=== PATIENT | female | born 1985 | race African-American/Black ===

== ENCOUNTER 2016-11-11 21:33 | Emergency (ER) | payer SELFPAY ==
--- NOTE | 2016-11-11 21:46 | ER Document Report ---
ED Medical Screen (RME) - General Stated Complaint: URINARY SYMPTOMS Notes: 30 yo c/o dysuria since this morning. + urgency, frequency. no fever. no n/v TRAVEL OUTSIDE OF THE [place] IN LAST 30 DAYS: No Past Medical History - Immunizations Hx Diphtheria, Pertussis, Tetanus Vaccination: Yes Physical Exam - Vital signs Vitals: Temp Pulse Resp BP Pulse Ox 97.9 F 66 18 116/60 98 11/11/16 21:40 11/11/16 21:40 11/11/16 21:40 11/11/16 21:40 11/11/16 21:40 Course - Vital Signs Vital signs: Temp Pulse Resp BP Pulse Ox 97.9 F 66 18 116/60 98 11/11/16 21:40 11/11/16 21:40 11/11/16 21:40 11/11/16 21:40 11/11/16 21:40
[2016-11-11 22:11] LABS: APPEARANCE,URINE CLOUDY; BILIRUBIN,URINE NEGATIVE (NEGATIVE); GLUCOSE, URINE NEGATIVE (NEGATIVE); KETONES,URINE NEGATIVE (NEGATIVE); LEUKOCYTE ESTERASE,URINE LARGE (NEGATIVE); NITRITE,URINE NEGATIVE (NEGATIVE); PROTEIN,URINE NEGATIVE (NEGATIVE); URINE SPECIFIC GRAVITY 1.023
[2016-11-12 00:14] VITALS: BP 120/71
[2016-11-12] MEDS ORDERED: NITROFURANTOIN MONOHYD/M-CRYST 100 MG CAPSULE PO ONE (00:23)
--- NOTE | 2016-11-12 00:23 | ER Document Report ---
ED GI/ - General Chief Complaint: Urinary Problem Stated Complaint: URINARY SYMPTOMS Time seen by provider: 00:18 Mode of Arrival: Ambulatory Information source: Patient Notes: 30-year-old female presents to ED for pressure on urination since this morning. Frequent urination. Last menstrual period 10/23/2016 TRAVEL OUTSIDE OF THE [place] IN LAST 30 DAYS: No - HPI Patient complains to provider of: Other - Pain with urination frequency Onset: This morning Timing/Duration: Intermittent Quality of pain: Pressure Severity at maximum: Mild Severity in ED: Mild Pain Level: 3 - Only when she uses the bathroom Location: Other - Pain with urination Vaginal bleeding (Compared to normal period): None Associated symptoms: Urinary frequency, Other - December urination Exacerbated by: Other - Urination Relieved by: Denies Similar symptoms previously: Yes Recently seen / treated by doctor: No - Related Data Allergies/Adverse Reactions: No Known Allergies Allergy (Unverified 11/11/16 21:46) Past Medical History - General Information source: Patient - Social History Smoking Status: Never Smoker Cigarette use (# per day): No Chew tobacco use (# tins/day): No Smoking Education Provided: No Frequency of alcohol use: None Drug Abuse: None Occupation: [employer] Lives with: Family Family History: CAD, Hyperlipidemia, Hypertension - Medical History Medical History: Negative - Past Medical History Cardiac Medical History: Reports: None Pulmonary Medical History: Reports: None EENT Medical History: Reports: None Neurological Medical History: Reports: None Endocrine Medical History: Reports: None Renal/ Medical History: Reports: None - Immunizations Hx Diphtheria, Pertussis, Tetanus Vaccination: Yes Review of Systems - Review of Systems Constitutional: No symptoms reported EENT: No symptoms reported Cardiovascular: No symptoms reported Respiratory: No symptoms reported Gastrointestinal: No symptoms reported Genitourinary: No symptoms reported, Frequency, Other - Pain with urination Female Genitourinary: No symptoms reported Musculoskeletal: No symptoms reported Skin: No symptoms reported Hematologic/Lymphatic: No symptoms reported Neurological/Psychological: No symptoms reported Physical Exam - Vital signs Vitals: Temp Pulse Resp BP Pulse Ox 97.9 F 66 18 116/60 98 11/11/16 21:40 11/11/16 21:40 11/11/16 21:40 11/11/16 21:40 11/11/16 21:40 Interpretation: Normal - General General appearance: Appears well, Alert - HEENT Head: Normocephalic, Atraumatic Eyes: Normal Pupils: PERRL - Respiratory Respiratory status: No respiratory distress Chest status: Nontender Breath sounds: Normal Chest palpation: Normal - Cardiovascular Rhythm: Regular Heart sounds: Normal auscultation Murmur: No - Abdominal Inspection: Normal Distension: No distension Bowel sounds: Normal Tenderness: Nontender Organomegaly: No organomegaly - Back Back: Normal, Nontender - Extremities General upper extremity: Normal inspection, Nontender, Normal color, Normal ROM , Normal temperature General lower extremity: Normal inspection, Nontender, Normal color, Normal ROM , Normal temperature, Normal weight bearing. No: Annia's sign - Neurological Neuro grossly intact: Yes Cognition: Normal Orientation: AAOx4 [place] Coma Scale Eye Opening: Spontaneous Pati Coma Scale Verbal: Oriented [place] Coma Scale Motor: Obeys Commands Pati Coma Scale Total: 15 Speech: Normal Motor strength normal: LUE, RUE, LLE, RLE Sensory: Normal - Psychological Associated symptoms: Normal affect, Normal mood - Skin Skin Temperature: Warm Skin Moisture: Dry Skin Color: Normal Course - Vital Signs Vital signs: Temp Pulse Resp BP Pulse Ox 97.9 F 71 16 120/71 98 11/12/16 00:13 11/12/16 00:13 11/12/16 00:13 11/12/16 00:13 11/12/16 00:13 - Laboratory Laboratory results interpreted by me: 11/11/16 21:50 Urine Urobilinogen 2.0 H Ur Leukocyte Esterase LARGE H Discharge - Discharge Clinical Impression: UTI (urinary tract infection) Qualifiers: Urinary tract infection type: site unspecified Hematuria presence: without hematuria Qualified Code(s): N39.0 - Urinary tract infection, site not specified Condition: Good Disposition: HOME, SELF-CARE Additional Instructions: URINARY TRACT INFECTION: Your evaluation indicates that you have a urinary tract infection. This is due to germs growing in the bladder. This is a common problem. This infection usually responds quickly to antibiotics. Your antibiotic should be taken exactly as prescribed. Drink plenty of fluids -- three to four quarts a day. Occasionally, a bladder anesthetic will be prescribed to help stop the feeling of urgency until the antibiotic has a chance to clear the infection. This may cause your urine to be dark orange. Certain urine infections require a culture. If the doctor obtained a culture, the results will be back in two days. You should call to see if a change in treatment is needed. A repeat urinalysis after you finish treatment is often recommended. The physician will let you know if further testing is required. Call the doctor if you develop fever, chills, flank pain, inability to urinate, or blood in the urine. NITROFURANTOIN (MACRODANTIN, MACROBID): You have received a prescription for nitrofurantoin (Macrodantin). This antibiotic is used for urinary tract infections. Women who are or nursing should notify the physician before taking this medicine. If you have ever had a problem caused by this medication in the past, be sure the physician is aware of it. Common side effects of this medicine include nausea, vomiting, or decreased appetite. Notify your physician if these side effects become severe. Immediately stop this medicine and call the physician if you develop cough , shortness of breath, chest pain, weakness, jaundice (yellow color of the skin and whites of the eyes), or a skin rash. FOLLOW-UP CARE: If you have been referred to a physician for follow-up care, call the physician s office for an appointment as you were instructed or within the next two days. If you experience worsening or a significant change in your symptoms, notify the physician immediately or return to the Emergency Department at any time for re-evaluation. Prescriptions: Nitrofurantoin/Nitrofuran Mac [Macrobid 100 mg Capsule] 1 tab PO BID #20 capsule Forms: Return to Work
== END 2016-11-12 01:06 | disposition home or self-care (01) ==
LOC: ER 21:33
DX: N39.0 Urinary tract infection, site not specified (principal); R39.198 Other difficulties with micturition; R35.0 Frequency of micturition
CPT/HCPCS: 99283; 87086; 81001; J8499

== ENCOUNTER 2017-02-01 09:48 | Emergency (ER) | payer SELFPAY ==
[2017-02-01] MEDS ORDERED: FAMOTIDINE 20 MG TABLET PO ONE (10:26)
[2017-02-01] MEDS ORDERED: ONDANSETRON 4 MG TAB.RAPDIS PO ONE (10:26)
[2017-02-01] MEDS ORDERED: SUCRALFATE 1 GM TABLET PO ONE (10:26)
--- NOTE | 2017-02-01 10:26 | ER Document Report ---
ED Medical Screen (RME) - General Mode of Arrival: Ambulatory Information source: Patient TRAVEL OUTSIDE OF THE U.[place] IN LAST 30 DAYS: No <DB GASCA - Last Filed: 02/01/17 11:25> <OSEI CARROLL - Last Filed: 02/01/17 11:43> <OSWALDO MARCIAL - Last Filed: 02/01/17 13:15> - General Chief Complaint: Epigastric Pain Stated Complaint: PAIN IN UPPER RIB/RIGHT SIDE Time Seen by Provider: 02/01/17 10:19 Notes: Patient presents today with complaints of abdominal pain beginning yesterday. Patient has describes the pain as a "sharp pain" and she states it "comes and goes". Patient states she noticed that her pain increased after taking Goody's powder. Patient states her pain is relieved with food. Patient denies any fevers, nausea, vomiting, or cough. (DB GASCA) 31-year-old female presents with epigastric pain started yesterday after taking a Goody's powder for her headache. She has noticed since then sharp pain it is usually improved when she eats but then will come back shortly afterwards. She is not having any vomiting or nausea. Denies fever or chest pain and states she has had a little bit of dizziness and felt last night like her heart was racing. Denies cough or cold symptoms. No other alleviating or exacerbating symptoms. Currently she does not have pain but it does seem to come and go. Also has had some mild Sylwia vision bilaterally though states she wears glasses but does not have them with her. There is no vision loss. No focal weakness numbness or tingling. (OSEI CARROLL) - Related Data Allergies/Adverse Reactions: No Known Allergies Allergy (Unverified 02/01/17 10:06) Past Medical History Renal/ Medical History: Denies: Hx Peritoneal Dialysis - Immunizations Hx Diphtheria, Pertussis, Tetanus Vaccination: Yes <DB GASCA - Last Filed: 02/01/17 11:25> Physical Exam - Vital signs Interpretation: Normal - General General appearance: Alert In distress: Mild - appera uncomfortable - Abdominal Tenderness: Tender - mild epigastric <OSWALDO MARCIAL - Last Filed: 02/01/17 13:15> - Vital signs Vitals: Temp Pulse Resp BP Pulse Ox 98 F 71 16 122/77 100 02/01/17 10:06 02/01/17 10:06 02/01/17 10:06 02/01/17 10:06 02/01/17 10:06 Course - Laboratory Result Diagrams: 02/01/17 10:55 02/01/17 10:55 <DB GASCA - Last Filed: 02/01/17 11:25> - Laboratory Result Diagrams: 02/01/17 10:55 02/01/17 10:55 <OSEI CARROLL - Last Filed: 02/01/17 11:43> - Laboratory Result Diagrams: 02/01/17 10:55 02/01/17 10:55 <OSWALDO MARCIAL - Last Filed: 02/01/17 13:15> - Re-evaluation Re-evalutation: 02/01/17 13:15 I personally performed the services described in the documentation, reviewed and edited the documentation which was dictated to the scribe in my presence, and it accurately records my words and actions. (OSWALDO MARCIAL) - Vital Signs Vital signs: Temp Pulse Resp BP Pulse Ox 98.7 F 66 16 112/67 99 02/01/17 12:54 02/01/17 12:54 02/01/17 12:54 02/01/17 12:54 02/01/17 12:54 - Laboratory Laboratory results interpreted by me: 02/01/17 02/01/17 10:31 10:55 Total Bilirubin 1.8 H Lipase 323.0 H Urine Blood SMALL H Doctor's Discharge <DB GASCA - Last Filed: 02/01/17 11:25> <OSEI CARROLL - Last Filed: 02/01/17 11:43> <OSWALDO MARCIAL - Last Filed: 02/01/17 13:15> - Discharge Clinical Impression: Epigastric abdominal pain Condition: Good Disposition: HOME, SELF-CARE Instructions: Abdominal Pain ([facility]) Additional Instructions: Use clear liquids today. Avoid NSAIDs such as gait pattern is or ibuprofen. As discussed, one your pancreas enzyme is borderline elevated so please return if you're worsening at all or for other concern. Use Prilosec over the counter daily 20 mg. Start this today. Prescriptions: Omeprazole Magnesium [Prilosec Otc] 20 mg PO DAILY #15 tablet.dr Quiroz Documentation - Scribe Written by Richie:: Richie Muñiz, 02/01/2017 1131 acting as scribe for :: Mark <DB GASCA - Last Filed: 02/01/17 11:25>
[2017-02-01 11:06] LABS: APPEARANCE,URINE CLEAR; BILIRUBIN,URINE NEGATIVE (NEGATIVE); GLUCOSE, URINE NEGATIVE (NEGATIVE); KETONES,URINE NEGATIVE (NEGATIVE); LEUKOCYTE ESTERASE,URINE NEGATIVE (NEGATIVE); NITRITE,URINE NEGATIVE (NEGATIVE); PROTEIN,URINE NEGATIVE (NEGATIVE); URINE SPECIFIC GRAVITY 1.001; UROBILINOGEN,URINE NEGATIVE mg/dL (<2.0)
[2017-02-01 11:36] LABS: ABSOLUTE BASOPHILS # (AUTO) 0.1 10^3/uL (0.0-0.2); ABSOLUTE EOSINOPHILS # (AUTO) 0.1 10^3/uL (0.0-0.6); ABSOLUTE LYMPHOCYTES (AUTO) 1.7 10^3/uL (0.5-4.7); ABSOLUTE NEUT (AUTO) 5.7 10^3/uL (1.7-8.2); BASOPHILS % (AUTO) 0.6 % (0-2); HEMATOCRIT 41.3 % (36.0-47.0); HEMOGLOBIN 13.9 g/dL (12.0-15.5); HGB HCT DIFFERENCE 0.4; LYMPHOCYTES % (AUTO) 19.6 % (13-45); MEAN CORPUSCULAR HEMOGLOBIN 32.3 pg (27.0-33.4); MEAN CORPUSCULAR HGB CONC 33.8 g/dL (32.0-36.0); MEAN CORPUSCULAR VOLUME 96 fl (80-97); MONOCYTES % (AUTO) 11.8 % (3-13); RED BLOOD COUNT 4.32 10^6/uL (3.72-5.28); RED CELL DISTRIBUTION WIDTH 12.7 % (11.5-14.0); WHITE BLOOD COUNT 8.5 10^3/uL (4.0-10.5)
[2017-02-01 11:51] LABS: ALANINE AMINOTRANSFERASE 25 U/L (9-52); ALBUMIN 4.6 g/dL (3.5-5.0); ALKALINE PHOSPHATASE 52 U/L (38-126); ANION GAP 11 (5-19); ASPARTATE AMINO TRANSFERASE 22 U/L (14-36); BILIRUBIN,DIRECT 0.3 mg/dL (0.0-0.4); BILIRUBIN,TOTAL 1.8 mg/dL (0.2-1.3); BLOOD UREA NITROGEN 9 mg/dL (7-20); CALCIUM 9.8 mg/dL (8.4-10.2); CARBON DIOXIDE 28 mmol/L (22-30); CHLORIDE 102 mmol/L (98-107); CREATININE RESULT 0.71 mg/dL (0.52-1.25); GLUCOSE 92 mg/dL (75-110); POTASSIUM 4.5 mmol/L (3.6-5.0); SODIUM 141.3 mmol/L (137-145); TOTAL PROTEIN 8.1 g/dL (6.3-8.2)
--- NOTE | 2017-02-01 11:52 | ER Document Report ---
ED General - General Chief Complaint: Epigastric Pain Stated Complaint: PAIN IN UPPER RIB/RIGHT SIDE Time Seen by Provider: 02/01/17 10:19 Mode of Arrival: Ambulatory Notes: 31-year-old female presents with epigastric pain started yesterday after taking a Goody's powder for her headache. She has noticed since then sharp pain it is usually improved when she eats but then will come back shortly afterwards. She is not having any vomiting or nausea. Denies fever or chest pain and states she has had a little bit of dizziness and felt last night like her heart was racing. Denies cough or cold symptoms. No other alleviating or exacerbating symptoms. Currently she does not have pain but it does seem to come and go. Also has had some mild Sylwia vision bilaterally though states she wears glasses but does not have them with her. There is no vision loss. No focal weakness numbness or tingling. (OSEI CARROLL) TRAVEL OUTSIDE OF THE [place] IN LAST 30 DAYS: No - Related Data Allergies/Adverse Reactions: No Known Allergies Allergy (Unverified 02/01/17 10:06) Past Medical History - General Information source: Patient - Social History Smoking Status: Never Smoker Chew tobacco use (# tins/day): No Frequency of alcohol use: None Drug Abuse: None Family History: CAD, Hyperlipidemia, Hypertension Patient has suicidal ideation: No Patient has homicidal ideation: No Renal/ Medical History: Denies: Hx Peritoneal Dialysis Surgical Hx: Negative - Immunizations Hx Diphtheria, Pertussis, Tetanus Vaccination: Yes Review of Systems - Review of Systems -: Yes All other systems reviewed and negative Physical Exam - Vital signs Vitals: Temp Pulse Resp BP Pulse Ox 98 F 71 16 122/77 100 02/01/17 10:06 02/01/17 10:06 02/01/17 10:06 02/01/17 10:06 02/01/17 10:06 - Notes Notes: GENERAL: VS as per nursing doc. Well-appearing, well-nourished and in no acute distress. HEAD: Atraumatic, normocephalic. EYES: Pupils equal round and reactive to light, extraocular movements intact, sclera anicteric, no conjunctival injection or discharge. Anterior chambers are clear ENT: Nares patent, oropharynx clear without exudates, moist mucous membranes. NECK: Normal range of motion, supple without lymphadenopathy. LUNGS: Breath sounds clear to auscultation bilaterally and equal. No wheezes rales or rhonchi. HEART: Regular rate and rhythm without murmurs. ABDOMEN: Soft, minimal epigastric tenderness, normoactive bowel sounds. No guarding, no rebound. No masses appreciated. No [place] sign. BACK: No CVA tenderness. EXTREMITIES: Normal range of motion, no calf tenderness, no edema. NEUROLOGICAL: Cranial nerves intact. Normal speech. Normal sensory and motor exams. No cerebellar abnormalities with normal gait. PSYCH: Normal mood, normal affect. SKIN: Warm, dry, normal turgor, no lesions noted. Course - Re-evaluation Re-evalutation: 02/01/17 12:43 Patient is reevaluated. Her symptoms are resolved. She has no tenderness. I discussed lab findings with her which included a slightly elevated lipase and bilirubin but no significant white blood cell count or LFT change. I discussed with her potential differential including early pancreatitis that at this point we will treat it more like gastritis and she will get follow-up returning immediately if worsening. She voices understanding of this. She will use Prilosec [id number]. - Vital Signs Vital signs: Temp Pulse Resp BP Pulse Ox 98 F 71 16 122/77 100 02/01/17 10:06 02/01/17 10:06 02/01/17 11:26 02/01/17 10:06 02/01/17 10:06 - Laboratory Result Diagrams: 02/01/17 10:55 02/01/17 10:55 Laboratory results interpreted by me: 02/01/17 02/01/17 10:31 10:55 Total Bilirubin 1.8 H Lipase 323.0 H Urine Blood SMALL H - EKG Interpretation by Ny EKG shows normal: Sinus rhythm - EKG shows rate 97 with normal sinus rhythm with flat ST segments but no obvious ischemia Discharge - Discharge Clinical Impression: Epigastric abdominal pain Condition: Good Disposition: HOME, SELF-CARE Instructions: Abdominal Pain ([facility]) Additional Instructions: Use clear liquids today. Avoid NSAIDs such as gait pattern is or ibuprofen. As discussed, one your pancreas enzyme is borderline elevated so please return if you're worsening at all or for other concern. Use Prilosec over the counter daily 20 mg. Start this today. Prescriptions: Omeprazole Magnesium [Prilosec Otc] 20 mg PO DAILY #15 tablet.
[2017-02-01 12:56] VITALS: BP 112/67
--- NOTE | 2017-02-01 20:34 | EKG REPORT ---
SEVERITY:- BORDERLINE ECG - SINUS RHYTHM PROBABLE LEFT ATRIAL ABNORMALITY : Confirmed by: Jazz Ellington 01-Feb-2017 20:33:12
== END 2017-02-01 12:56 | disposition home or self-care (01) ==
LOC: ER 09:48
DX: R10.13 Epigastric pain (principal); R07.81 Pleurodynia; R11.0 Nausea
CPT/HCPCS: 93005; 99284; 36415; 83690; 84703; 85025; 80053; 81001; 71020; 93010; S0119

== ENCOUNTER 2017-02-28 01:57 | Emergency (ER) | payer BC ==
[2017-02-28 02:12] VITALS: BP 118/67
[2017-02-28] MEDS ORDERED: HYDROCODONE/ACETAMINOPHEN 5-325 MG 6 TAB/DSPK PO PRN (03:09)
[2017-02-28] MEDS ORDERED: PENICILLIN V POTASSIUM 500 MG TABLET PO ONE (03:09)
--- NOTE | 2017-02-28 03:11 | ER Document Report ---
HPI - HPI Patient complains to provider of: Dental pain Onset: Yesterday Onset/Duration: Gradual Quality of pain: Sharp Pain Level: 5 Context: pt complains of dental pain to right upper jaw that started yesterday. Reports that pain radiates into her ears. Patient denies any fever or facial swelling. Associated Symptoms: Other - dental pain. denies: Fever Exacerbated by: Denies Relieved by: Denies Similar symptoms previously: Yes Recently seen / treated by doctor: No - ROS ROS below otherwise negative: Yes Systems Reviewed and Negative: Yes All other systems reviewed and negative - CONSTITUTIONAL Constitutional: DENIES: Fever - EENT EENT: REPORTS: Ear Pain Notes: dental pain - RESPIRATORY Respiratory: DENIES: Coughing - GASTROINTESTINAL Gastrointestinal: DENIES: Nausea, Patient vomiting - REPRODUCTIVE Reproductive: DENIES: : - DERM Skin Color: Normal Skin Problems: None - NURSING COMMENTS Comment: C/o toothache. Past Medical History - General Information source: Patient - Social History Smoking Status: Never Smoker Frequency of alcohol use: None Drug Abuse: None Occupation: [employer] Family History: CAD, Hyperlipidemia, Hypertension Patient has suicidal ideation: No Patient has homicidal ideation: No - Medical History Medical History: Negative Renal/ Medical History: Denies: Hx Peritoneal Dialysis Surgical Hx: Negative - Immunizations Hx Diphtheria, Pertussis, Tetanus Vaccination: Yes Vertical Provider Document - CONSTITUTIONAL Agree With Documented VS: Yes Exam Limitations: No Limitations General Appearance: WD/WN, No Apparent Distress - INFECTION CONTROL TRAVEL OUTSIDE OF THE [place] IN LAST 30 DAYS: No - HEENT HEENT: Atraumatic, Normocephalic. negative: Pharyngeal Exudate, Pharyngeal Tenderness, Pharyngeal Erythema, Tympanic Membrane Red, Tympanic Membrane Bulging Mouth Diagram: 1 - dental Decay, tenderness, no gingival abscess, no trismus - NECK Neck: Normal Inspection, Supple. negative: Lymphadenopathy-Left, Lymphadenopathy-Right - RESPIRATORY Respiratory: Breath Sounds Normal, No Respiratory Distress, Chest Non-Tender O2 Sat by Pulse Oximetry: 99 - CARDIOVASCULAR Cardiovascular: Regular Rate, Regular Rhythm, No Murmur - BACK Back: Normal Inspection - MUSCULOSKELETAL/EXTREMETIES Musculoskeletal/Extremeties: MAEW - NEURO Level of Consciousness: Awake, Alert, Appropriate Motor/Sensory: No Motor Deficit - DERM Integumentary: Warm, Dry, No Rash Course - Vital Signs Vital signs: Temp Pulse Resp BP Pulse Ox 98.7 F 60 18 118/67 99 02/28/17 02:09 02/28/17 02:09 02/28/17 02:09 02/28/17 02:09 02/28/17 02:09 Discharge - Discharge Clinical Impression: Toothache Condition: Stable Disposition: HOME, SELF-CARE Instructions: Penicillin V K ([facility]), Toothache ([facility]), Oral Narcotic Medication ( [facility]) Additional Instructions: Return immediately for any new or worsening symptoms Followup with your primary care provider, call tomorrow to make a followup appointment Follow up with the dental care provider, call Wednesday for an appointment Prescriptions: Hydrocodone/Acetaminophen [[place] 5-325 Tablet] 1 each PO Q4 PRN #8 tablet PRN Reason: Naproxen [Naprosyn 250 Nmg Tablet] 1 tab PO BID #14 tablet Penicillin V Potassium [Penicillin Vk 500 mg Tablet] 500 mg PO BID #20 tablet Referrals: [facility] [Provider Group] - Follow up as needed
== END 2017-02-28 03:41 | disposition home or self-care (01) ==
LOC: ER 01:57
DX: K02.9 Dental caries, unspecified (principal); K08.89 Other specified disorders of teeth and supporting structures; H92.09 Otalgia, unspecified ear
CPT/HCPCS: 99282

== ENCOUNTER 2017-10-10 04:26 | Emergency (ER) | payer BC ==
[2017-10-10 04:35] VITALS: BP 114/74
== END 2017-10-10 04:45 | disposition left against medical advice (07) ==
LOC: ER 04:26
DX: Z53.21 Procedure and treatment not carried out due to patient leaving prior to being seen by health care provider (principal)

== ENCOUNTER 2018-04-15 11:09 | Emergency (ER) | payer SELFPAY ==
--- NOTE | 2018-04-15 11:50 | ER Document Report ---
ED GI/ - General Chief Complaint: Abdominal Pain Stated Complaint: ABDOMINAL PAIN Time Seen by Provider: 04/15/18 11:50 Mode of Arrival: Ambulatory Information source: Patient Notes: 32-year-old is complaining of pelvic cramping and low back pain all the way across this week. She has urinary frequency. She vomited twice few days ago. She did have only one day of spotting 04-09-18Wednesday. Normal menses . No vaginal discharge with an odor. No history of abdominal surgeries. TRAVEL OUTSIDE OF THE [place] IN LAST 30 DAYS: No - Related Data Allergies/Adverse Reactions: No Known Allergies Allergy (Unverified 02/01/17 10:06) Past Medical History - General Information source: Patient - Social History Smoking Status: Never Smoker Frequency of alcohol use: None Drug Abuse: None Lives with: Family Family History: CAD, Hyperlipidemia, Hypertension - Medical History Medical History: Negative Notes: Renal/ Medical History: Denies: Hx Peritoneal Dialysis Surgical Hx: Negative - Immunizations Hx Diphtheria, Pertussis, Tetanus Vaccination: Yes Review of Systems - Review of Systems Constitutional: No symptoms reported EENT: No symptoms reported Cardiovascular: No symptoms reported Respiratory: No symptoms reported Gastrointestinal: No symptoms reported Genitourinary: No symptoms reported Female Genitourinary: See HPI Musculoskeletal: See HPI Skin: No symptoms reported Hematologic/Lymphatic: No symptoms reported Neurological/Psychological: No symptoms reported Physical Exam - Vital signs Vitals: Temp Pulse Resp BP Pulse Ox 98.6 F 60 16 115/67 100 04/15/18 11:13 04/15/18 11:13 04/15/18 11:13 04/15/18 11:13 04/15/18 11:13 Interpretation: Normal - General General appearance: Appears well, Alert - HEENT Head: Normocephalic, Atraumatic Eyes: Normal Conjunctiva: Normal Pupils: PERRL Neck: Supple. No: Lymphadenopathy - Respiratory Respiratory status: No respiratory distress Chest status: Nontender Breath sounds: Normal Chest palpation: Normal - Cardiovascular Rhythm: Regular Heart sounds: Normal auscultation Murmur: No - Abdominal Inspection: Normal Distension: No distension Bowel sounds: Normal Tenderness: Nontender. No: Tender Organomegaly: No organomegaly - Back Back: Normal, Nontender. No: CVA tenderness - Extremities General upper extremity: Normal inspection, Nontender, Normal color, Normal ROM , Normal temperature General lower extremity: Normal inspection, Nontender, Normal color, Normal ROM , Normal temperature, Normal weight bearing. No: Annia's sign - Neurological Neuro grossly intact: Yes Cognition: Normal Orientation: AAOx4 [place] Coma Scale Eye Opening: Spontaneous [place] Coma Scale Verbal: Oriented [place] Coma Scale Motor: Obeys Commands [place] Coma Scale Total: 15 Speech: Normal Motor strength normal: LUE, RUE, LLE, RLE Sensory: Normal - Psychological Associated symptoms: Normal affect, Normal mood - Skin Skin Temperature: Warm Skin Moisture: Dry Skin Color: Normal Course - Re-evaluation Re-evalutation: 04/15/18 12:47 Urine test is positive I added a serum quantitative test 04/15/18 14:11 Wet prep is negative, gonorrhea and chlamydia is pending Urinalysis negative for infection and the serum quantitative is 6152 04/15/18 14:11 - Vital Signs Vital signs: Temp Pulse Resp BP Pulse Ox 98.6 F 64 18 102/58 L 98 04/15/18 13:00 04/15/18 13:00 04/15/18 13:00 04/15/18 13:00 04/15/18 13:00 - Laboratory Laboratory results interpreted by me: 04/15/18 04/15/18 11:53 12:50 Beta HCG, Quant 6152.60 H Urine Blood SMALL H Urine Urobilinogen 4.0 H Urine HCG, Qual POSITIVE H Discharge - Discharge Clinical Impression: Pelvic cramping, Early Condition: Good Disposition: HOME, SELF-CARE Instructions: Pelvic Pain in ([facility]) Additional Instructions: Please return if you change your mind about getting the ultrasound today to find out where the is. Your serum test is 6000 and I have given you result The urinalysis does not show infection See the health department or [facility] for this Return to the emergency room for any increased pain or bleeding Call me back before 9 PM tonight to get a gonorrhea and Chlamydia test results at [phone]
[2018-04-15 12:07] LABS: APPEARANCE,URINE SLIGHTLY-CLOUDY; BILIRUBIN,URINE NEGATIVE (NEGATIVE); COLOR,URINE YELLOW; GLUCOSE, URINE NEGATIVE (NEGATIVE); KETONES,URINE NEGATIVE (NEGATIVE); LEUKOCYTE ESTERASE,URINE NEGATIVE (NEGATIVE); NITRITE,URINE NEGATIVE (NEGATIVE); PROTEIN,URINE NEGATIVE (NEGATIVE); URINE SPECIFIC GRAVITY 1.018
[2018-04-15 12:48] LABS: RBCS (WET MOUNT) RARE RBCS SEEN; T.VAGINALIS (WET MOUNT) NO TRICHOMONAS SEEN; WBCS (WET MOUNT) RARE WBCS SEEN; YEAST (WET MOUNT) NO YEAST SEEN
[2018-04-15 14:13] VITALS: BP 102/64
[2018-04-15 14:33] LABS: CHLAM PCR NOT DETECTED (NOT DETECT); GON PCR NOT DETECTED (NOT DETECT)
== END 2018-04-15 14:20 | disposition home or self-care (01) ==
LOC: ER 11:09
DX: O26.891 Other specified pregnancy related conditions, first trimester (principal); R10.2 Pelvic and perineal pain; R35.0 Frequency of micturition; O21.9 Vomiting of pregnancy, unspecified; O99.89 Other specified diseases and conditions complicating pregnancy, childbirth and the puerperium; M54.5 Low back pain; Z3A.01 Less than 8 weeks gestation of pregnancy
CPT/HCPCS: 36415; 81001; 81025; 84702; 87086; 87210; 87491; 87591; 99284

== ENCOUNTER 2018-04-18 18:16 | Emergency (ER) | payer SELFPAY ==
--- NOTE | 2018-04-18 18:48 | ER Document Report ---
ED Medical Screen (RME) - General Chief Complaint: Abdominal Pain Stated Complaint: ABDOMINAL PAIN Time Seen by Provider: 04/18/18 18:48 Mode of Arrival: Ambulatory Information source: Patient Notes: 32 yo female that had to leave to tack picker her son on wednesday- so did not get the TV US recommended by me returns tonight with left pevic cramping, no vaginal bleeding. some back pain persists and down into left leg. The std cx, wet prep, urine were negative. No vaginal discharge. TRAVEL OUTSIDE OF THE [place] IN LAST 30 DAYS: No - Related Data Allergies/Adverse Reactions: No Known Allergies Allergy (Verified 04/18/18 18:18) Past Medical History Renal/ Medical History: Denies: Hx Peritoneal Dialysis - Immunizations Hx Diphtheria, Pertussis, Tetanus Vaccination: Yes
[2018-04-18 19:20] LABS: APPEARANCE,URINE CLEAR; BILIRUBIN,URINE NEGATIVE (NEGATIVE); COLOR,URINE YELLOW; GLUCOSE, URINE NEGATIVE (NEGATIVE); KETONES,URINE NEGATIVE (NEGATIVE); LEUKOCYTE ESTERASE,URINE NEGATIVE (NEGATIVE); NITRITE,URINE NEGATIVE (NEGATIVE); PROTEIN,URINE NEGATIVE (NEGATIVE); URINE SPECIFIC GRAVITY 1.016
--- NOTE | 2018-04-18 19:27 | ER Document Report ---
ED GI/ - General Chief Complaint: Abdominal Pain Stated Complaint: ABDOMINAL PAIN Time Seen by Provider: 04/18/18 18:48 Mode of Arrival: Ambulatory Notes: Patient is a 32-year-old female, at about 5 weeks gestation by last menstrual., That comes emergency department for chief complaint of several days of cramping, mainly in the left lower abdomen, seen 3 days ago and had negative workup including pelvic examination, did not have an ultrasound that time, came back for ultrasound which was recommended during that visit. She denies any vaginal bleeding, trauma, fever, abnormal vaginal discharge, dysuria. She takes no daily medications. TRAVEL OUTSIDE OF THE [place] IN LAST 30 DAYS: No - Related Data Allergies/Adverse Reactions: No Known Allergies Allergy (Verified 04/18/18 18:18) Past Medical History - General Information source: Patient - Social History Smoking Status: Never Smoker Drug Abuse: None Lives with: Family Family History: CAD, Hyperlipidemia, Hypertension Patient has suicidal ideation: No Patient has homicidal ideation: No - Medical History Medical History: Negative Renal/ Medical History: Denies: Hx Peritoneal Dialysis Surgical Hx: Negative - Immunizations Hx Diphtheria, Pertussis, Tetanus Vaccination: Yes Review of Systems - Review of Systems Constitutional: No symptoms reported EENT: No symptoms reported Cardiovascular: No symptoms reported Respiratory: No symptoms reported Gastrointestinal: See HPI Genitourinary: See HPI Female Genitourinary: See HPI Musculoskeletal: No symptoms reported Skin: No symptoms reported Hematologic/Lymphatic: No symptoms reported Neurological/Psychological: No symptoms reported Physical Exam - Vital signs Vitals: Temp Pulse Resp BP Pulse Ox 98.4 F 73 18 102/57 L 98 04/18/18 18:34 04/18/18 18:34 04/18/18 18:34 04/18/18 18:34 04/18/18 18:34 - Notes Notes: GENERAL: Alert, interacts well, smiling and well-appearing. No acute distress. HEAD: Normocephalic, atraumatic. EYES: Pupils equal, round, and reactive to light. Extraocular movements intact. ENT: Oral mucosa moist, tongue midline. [Nares patent, no nasal septal hematoma , TM's intact.] NECK: Full range of motion. Supple. Trachea midline. LUNGS: Clear to auscultation bilaterally, no wheezes, rales, or rhonchi. No respiratory distress. HEART: Regular rate and rhythm. No murmur ABDOMEN: Abdomen generally soft and nontender although there is very mild tenderness in the left lower quadrant. No guarding, rigidity, rebound tenderness. Non-distended. Bowel sounds present in all 4 quadrants. EXTREMITIES: Moves all 4 extremities spontaneously. No edema, normal radial and dorsalis pedis pulses bilaterally. No cyanosis. BACK: no cervical, thoracic, lumbar midline tenderness. No saddle anesthesia, normal distal neurovascular exam. NEUROLOGICAL: Alert and oriented x3. Normal speech. [cranial nerves II through XII grossly intact]. PSYCH: Normal affect, normal mood. SKIN: Warm, dry, normal turgor. No rashes or lesions noted. Course - Re-evaluation Re-evalutation: Patient is well-appearing, has minimal left lower quadrant tenderness on exam, remaining evaluation is unremarkable. Vital signs unremarkable. Patient just had a pelvic examination with wet mount and gonorrhea/chlamydia testing performed which was unremarkable. HCG is increasing appropriately. Ultrasound shows intrauterine at 6 weeks 1 day, no visualized heartbeat but I suspect this is normal developing because of her increasing hCG. There is also closed cervix, no free fluid, there is a small subchorionic hemorrhage probably because of patient's symptoms of cramping. I discussed all the details with patient, provided her with a copy of ultrasound, discussed referral to AGRICULTURAL TECHNICAL OFFICER, recommendations, and return precautions. Patient states understanding and agreement. RhoGam is not indicated. - Vital Signs Vital signs: Temp Pulse Resp BP Pulse Ox 98.7 F 66 16 110/57 L 99 04/18/18 22:24 04/18/18 22:24 04/18/18 22:24 04/18/18 22:24 04/18/18 22:24 - Laboratory Laboratory results interpreted by me: 04/18/18 04/18/18 19:05 19:05 Beta HCG, Quant 24656.00 H Urine Urobilinogen 4.0 H Discharge - Discharge Clinical Impression: Abdominal cramping affecting Condition: Stable Disposition: HOME, SELF-CARE Additional Instructions: Your ultrasound shows what appears to be normal early at this time, it also shows no subchorionic bleed as we discussed. This should resolve with time. Recommend precautions including no running, jumping, heavy lifting, or sexual intercourse until cleared by AGRICULTURAL TECHNICAL OFFICER. I recommend close follow-up with OB /OPERATIONS SUPPORT REPRESENTATIVE, see referral, call to set up your first appointment. Return for any concerning symptoms including severe pain, passing out, heavy bleeding, fever, or any other concerning symptoms. Referrals: [facility] [Provider Group] - Follow up as needed
--- NOTE | 2018-04-18 21:11 | RADIOLOGY REPORT (SQ) ---
EXAM DESCRIPTION: U/S OB TRANSVAG W/DOPPLER COMPLETED DATE/TIME: 04/18/2018 8:26 pm REASON FOR STUDY: left pelvic pain COMPARISON: None. TECHNIQUE: Transvaginal static and realtime grayscale images acquired of the pelvis. Additional geo cted spectral and color Doppler images recorded. All images stored on PACs. [id number],780 CLINICAL DATES: LMP 03/06/2018. 6 weeks 1 day. LIMITATIONS: None. FINDINGS: FETUS: Living intrauterine . ULTRASOUND EGA: 6 weeks 1 day. ULTRASOUND MILLY: Not calculated. CRL: Questionable pole. FHR: Cardiac motion not seen. SIZE OF BLEED: Small SUBCHORIONIC BLEED: Yes. UTERUS: No masses. No anomalies. 11 x 6 x 7 cm. CERVICAL LENGTH: 2.7 cm. Closed. RIGHT ADNEXA: Normal ovary with normal vascular flow. 3.8 x 2.7 x 2.6 cm. No adnexal free fluid. No adnexal masses. LEFT ADNEXA: Normal ovary with normal vascular flow. 5 x 3.7 x 2.7 cm. No adnexal free fluid. No adnexal masses. FREE FLUID: None. OTHER: No other significant finding. IMPRESSION: There appears to be an early intrauterine gestation 6 weeks 1 day. heart motion w as not seen. Follow-up as clinically indicated. There was a small subchorionic bleed adjacent to th e gestational sac. Trimester of : First - 0 to 13 weeks. TECHNICAL DOCUMENTATION: JOB ID: [id number] [employer]- All Rights Reserved rev-02/04 Reading location - IP/workstation name: [email or web address]
[2018-04-18 22:25] VITALS: BP 110/57
== END 2018-04-18 22:25 | disposition home or self-care (01) ==
LOC: ER 18:16
DX: O26.891 Other specified pregnancy related conditions, first trimester (principal); R10.32 Left lower quadrant pain; R10.814 Left lower quadrant abdominal tenderness; Z3A.01 Less than 8 weeks gestation of pregnancy
CPT/HCPCS: 36415; 76817; 81001; 84702; 86900; 86901; 93976; 99284

== ENCOUNTER → 2018-05-20 | Outpatient (CLI) | payer MEDICAID ==
--- NOTE | 2018-05-20 14:48 | RADIOLOGY REPORT (SQ) ---
EXAM DESCRIPTION: U/S OT2JJYS TRNABD 1GES W/ODOP COMPLETED DATE/TIME: 05/20/2018 2:34 pm REASON FOR STUDY: ENCOUNTER FOR SUPERVISION OF OTHER NORMAL PREGANANCY Z34.81 ENCOUNTER FOR SUPRVSN OF NORMAL , FIRST TRIM COMPARISON: None. TECHNIQUE: Transabdominal static and realtime grayscale images acquired of the pelvis. Additional s elected spectral and color Doppler images recorded. All images stored on PACs. bHCG: Not available CLINICAL DATES: Last menses 03/06/2018 LIMITATIONS: None. FINDINGS: FETUS: Living intrauterine . ULTRASOUND EGA: 10 weeks 3 days ULTRASOUND MILLY: 12/13/2018 CRL: 3.6 cm FHR: 171 beats per minute. SUBCHORIONIC BLEED: No The gestational sac with living embryo is in the fundal endometrial canal. Along the lower uterine s egment, a failed twin is identified, with an irregular shaped gestational sac with surround ing decidual reaction, and tiny embryo without cardiac activity. UTERUS: No masses. No anomalies. Uterus is 12 x 8 x 7 cm in size CERVICAL LENGTH: 2.8 cm. Closed. RIGHT ADNEXA: Normal ovary with normal vascular flow. Right ovary is 2.8 x 1.7 x 1.4 cm in size. No adnexal free fluid. No adnexal masses. LEFT ADNEXA: Normal ovary with normal vascular flow. Left ovary 2.5 x 2 x 2 cm in size. No adnexal free fluid. No adnexal masses. FREE FLUID: None. OTHER: No other significant finding. IMPRESSION: LIVING INTRAUTERINE . EGA 10 weeks 3 days. Along the lower uterine segment, a failed twin is identified with irregular shaped gestatio nal sac and tiny embryo without cardiac activity. Trimester of : First - 0 to 13 weeks. TECHNICAL DOCUMENTATION: JOB ID: [id number] [employer]- All Rights Reserved rev Reading location - IP/workstation name: [email or web address]
== END ==
LOC: RAD 13:35
PROVIDERS: ATTEND Nurse Practitioner
DX: Z34.81 Encounter for supervision of other normal pregnancy, first trimester (principal)
CPT/HCPCS: 76801

== ENCOUNTER 2018-06-05 08:43 | Emergency (ER) | payer MEDICAID ==
[2018-06-05 08:48] VITALS: BP 112/73
--- NOTE | 2018-06-05 09:29 | ER Document Report ---
HPI - HPI Pain Level: Denies Notes: Patient presents with request for suture removal. Patient has 4 sutures to her upper lip. - REPRODUCTIVE Reproductive: DENIES: : Past Medical History - Social History Smoking Status: Never Smoker Frequency of alcohol use: None Drug Abuse: None Family History: CAD, Hyperlipidemia, Hypertension Patient has suicidal ideation: No Patient has homicidal ideation: No Renal/ Medical History: Denies: Hx Peritoneal Dialysis - Immunizations Hx Diphtheria, Pertussis, Tetanus Vaccination: Yes Vertical Provider Document - CONSTITUTIONAL Notes: PHYSICAL EXAMINATION: GENERAL: Well-appearing, well-nourished and in no acute distress. HEAD: Atraumatic, normocephalic. EYES: Pupils equal round extraocular movements intact, conjunctiva are normal. ENT: Nares patent NECK: Normal range of motion LUNGS: No respiratory distress Musculoskeletal: Normal range of motion NEUROLOGICAL: Normal speech, normal gait. PSYCH: Normal mood, normal affect. SKIN: Warm, Dry, normal turgor, no rashes or lesions noted. Healing laceration noted to left upper lip, [address] - INFECTION CONTROL TRAVEL OUTSIDE OF THE [place] IN LAST 30 DAYS: No Course - Re-evaluation Re-evalutation: 06/05/18 09:31 Sutures removed, laceration healing well. - Vital Signs Vital signs: Temp Pulse Resp BP Pulse Ox 98.8 F 63 14 112/73 100 06/05/18 08:46 06/05/18 08:46 06/05/18 08:46 06/05/18 08:46 06/05/18 08:46 Discharge - Discharge Clinical Impression: Visit for suture removal Condition: Stable Disposition: HOME, SELF-CARE Additional Instructions: Please continue to apply an antibiotic ointment to your wound. Please return to the emergency department if you develop any redness, swelling, streaking from the area or foul-smelling drainage. If you are placed on antibiotics and have not completed then please do so. Referrals: MAXIMILIAN SUTHERLAND, JOSELO [Primary Care Provider] - Follow up as needed
== END 2018-06-05 09:36 | disposition home or self-care (01) ==
LOC: ER 08:43
DX: S01.511D Laceration without foreign body of lip, subsequent encounter (principal); X58.XXXD Exposure to other specified factors, subsequent encounter

== ENCOUNTER 2018-07-29 20:42 | Emergency (ER) | payer MEDICAID ==
[2018-07-29 20:48] VITALS: BP 116/61
--- NOTE | 2018-07-29 22:07 | ER Document Report ---
ED General - General Chief Complaint: Rectal Bleeding Stated Complaint: BLOOD IN STOOL Time Seen by Provider: 07/29/18 21:55 Notes: Patient is a 32-year old female currently 5 months , no chronic medical problems who presents with a small amount of blood on her stool and hemorrhoids. The patient states that she has been straining to have bowel movements for the past several days, noticed a small amount of blood on her stool and when she wiped tonight prompting her to come to the emergency room for evaluation. She denies any known history of similar symptoms in the past. She has not been eating to try to treat her symptoms. Nothing worsens her symptoms. She denies any significant pain to her anus. Denies any significant bleeding at any time. Denies any use of anticoagulation. TRAVEL OUTSIDE OF THE [place] IN LAST 30 DAYS: No - Related Data Allergies/Adverse Reactions: No Known Allergies Allergy (Verified 04/18/18 18:18) Past Medical History - General Information source: Patient - Social History Smoking Status: Never Smoker Frequency of alcohol use: None Drug Abuse: None Lives with: Family Family History: Reviewed & Not Pertinent, CAD, Hyperlipidemia, Hypertension Patient has suicidal ideation: No Patient has homicidal ideation: No Renal/ Medical History: Denies: Hx Peritoneal Dialysis - Immunizations Hx Diphtheria, Pertussis, Tetanus Vaccination: Yes Review of Systems - Review of Systems Notes: Constitutional: Negative for fever. HENT: Negative for sore throat. Eyes: Negative for visual changes. Cardiovascular: Negative for chest pain. Respiratory: Negative for shortness of breath. Gastrointestinal: Positive for rectal bleeding and external hemorrhoids Genitourinary: Negative for dysuria. Musculoskeletal: Negative for back pain. Skin: Negative for rash. Neurological: Negative for headaches, weakness or numbness. 10 point ROS negative except as marked above and in HPI. Physical Exam - Vital signs Vitals: Temp Pulse Resp BP Pulse Ox 98.3 F 81 17 116/61 99 07/29/18 20:47 07/29/18 20:47 07/29/18 20:47 07/29/18 20:47 07/29/18 20:47 Interpretation: Normal Notes: PHYSICAL EXAMINATION: GENERAL: Well-appearing, well-nourished and in no acute distress. HEAD: Atraumatic, normocephalic. EYES: Pupils equal round and reactive to light, extraocular movements intact, sclera anicteric, conjunctiva are normal. ENT: nares patent, oropharynx clear without exudates. Moist mucous membranes. NECK: Normal range of motion, supple without lymphadenopathy LUNGS: Breath sounds clear to auscultation bilaterally and equal. No wheezes rales or rhonchi. HEART: Regular rate and rhythm without murmurs ABDOMEN: Soft, nontender, normoactive bowel sounds. No guarding, no rebound. No masses appreciated. Rectal: 2 small external hemorrhoids at the 3 and 4 o'clock position without any evidence of anal fissure or active bleeding EXTREMITIES: Normal range of motion, no pitting or edema. No cyanosis. NEUROLOGICAL: No focal neurological deficits. Moves all extremities spontaneously and on command. PSYCH: Normal mood, normal affect. SKIN: Warm, Dry, normal turgor, no rashes or lesions noted. Course - Re-evaluation Re-evalutation: 07/29/18 22:06 Presentation is most consistent with uncomplicated external hemorrhoids. Patient reports very minimal bleeding only with wiping at home, no indication for laboratories as I do not clinically suspect anemia. Patient's abdominal exam is otherwise benign. I do not suspect a more significant lower GI bleed or upper GI bleed based on history, vitals, normal hemoglobin, and patient's overall well appearance. The patient will be discharged home on conservative treatment recommendations as well as recommendations for close outpatient follow -up. Return precautions have been reviewed. - Vital Signs Vital signs: Temp Pulse Resp BP Pulse Ox 98.3 F 81 17 116/61 99 07/29/18 20:47 07/29/18 20:47 07/29/18 20:47 07/29/18 20:47 07/29/18 20:47 Discharge - Discharge Clinical Impression: External hemorrhoids Condition: Good Disposition: HOME, SELF-CARE Additional Instructions: You were seen today for hemorrhoids. The best treatment is to avoid straining while having bowel moments, avoiding heavy lifting, or any other activity that causes you to bear down forcefully. You need to make sure that your stools are soft and should start taking Docusate 200mg in the morning and at night until your stools are very soft and you can have a bowel movement without any straining. Please consider supplement and fiber in your diet or as an alternative and preferable option is improving your overall diet quality by adding plenty of vegetables and fibers fruits to your diet. You can also soak in warm water, apply topical hemorrhoid cream that can be purchased at the store , and take tylenol per box instructions as needed for pain. Please follow-up with your primary doctor. Return if you begin to have persistent bleeding, worsening pain, abdominal pain, fever >101, or any other symptoms that are concerning to you. Referrals: MAXIMILIAN SUTHERLAND APRN [NO LOCAL MD] - Follow up as needed
== END 2018-07-29 22:25 | disposition home or self-care (01) ==
LOC: ER 20:42
DX: O22.40 Hemorrhoids in pregnancy, unspecified trimester (principal); O99.619 Diseases of the digestive system complicating pregnancy, unspecified trimester; K62.5 Hemorrhage of anus and rectum; Z3A.00 Weeks of gestation of pregnancy not specified
CPT/HCPCS: 99283

== ENCOUNTER 2018-10-05 17:57 | Outpatient (CLI) | payer MEDICAID ==
[2018-10-05 19:05] LABS: BACTERIA (WET MOUNT) 3+ BACTERIA SEEN; EPITHELIALS (WET MOUNT) 4+ EPITHELIALS SEEN; T.VAGINALIS (WET MOUNT) NO TRICHOMONAS SEEN; WBCS (WET MOUNT) FEW WBCS SEEN; YEAST (WET MOUNT) NO YEAST SEEN
[2018-10-05 19:11] LABS: APPEARANCE,URINE SLIGHTLY-CLOUDY; BILIRUBIN,URINE NEGATIVE (NEGATIVE); COLOR,URINE YELLOW; GLUCOSE, URINE NEGATIVE (NEGATIVE); KETONES,URINE NEGATIVE (NEGATIVE); LEUKOCYTE ESTERASE,URINE SMALL (NEGATIVE); NITRITE,URINE NEGATIVE (NEGATIVE); PROTEIN,URINE NEGATIVE (NEGATIVE)
[2018-10-05 19:23] LABS: URINE AMPHETAMINES SCREEN NEGATIVE; URINE BARBITURATES SCREEN NEGATIVE; URINE BENZODIAZEPINES SCREEN NEGATIVE; URINE COCAINE SCREEN NEGATIVE; URINE MARIJUANA (THC) SCREEN NEGATIVE; URINE METHADONE SCREEN NEGATIVE; URINE PHENCYCLIDINE SCREEN NEGATIVE
--- NOTE | 2018-10-05 20:19 | Non Stress Test Report ---
Non Stress Test Datetime Report Generated by CPN: 10/05/2018 20:19 DEMOGRAPHIC EGA NST: 29.6 INDICATION Indication for Study: Ordered by Provider MONITORING Monitor Explained: Monitor Explained; Test Explained; Patient Verbalized Understanding Time on Monitor: 10/05/2018 18:35 Time off Monitor: 10/05/2018 19:54 NST Duration: 79 NST INTERVENTIONS NST Interventions: PO Hydration Physician Notified NST: Dr Casiano BABY A: [id number] BABY A Movement : Present Contraction Frequency : none FHR Baseline : 150 Accelerations : 10X10 Decelerations : None Variability : Moderate 6-25bpm NST Review: Meets Criteria for Reactive NST NST Review and Verified By : EMILY Wilburn Results: Reactive NST REPORT Report Trigger: Send Report
[2018-10-05 20:28] LABS: CHLAM PCR NOT DETECTED (NOT DETECT); GON PCR NOT DETECTED (NOT DETECT)
== END 2018-10-05 20:19 | disposition home or self-care (01) ==
LOC: LC 17:57
PROVIDERS: ATTEND Obstetrics & Gynecology
PROC: 4A1HXCZ Monitoring of Products of Conception, Cardiac Rate, External Approach (ICD-10-PCS; principal; 2018-10-05)
DX: O26.893 Other specified pregnancy related conditions, third trimester (principal); R10.30 Lower abdominal pain, unspecified; Z3A.29 29 weeks gestation of pregnancy
CPT/HCPCS: 80307; 81001; 87210; 87491; 87591

== ENCOUNTER 2018-10-17 11:37 | Emergency (ER) | payer MEDICAID ==
[2018-10-17 11:52] VITALS: BP 111/66
[2018-10-17] MEDS ORDERED: ACETAMINOPHEN 325 MG TABLET PO ONE (12:31)
[2018-10-17] MEDS ORDERED: PENICILLIN V POTASSIUM 500 MG TABLET PO ONE (12:31)
--- NOTE | 2018-10-17 12:33 | ER Document Report ---
HPI - HPI Patient complains to provider of: Dental pain Time Seen by Provider: 10/17/18 12:24 Onset: This morning Onset/Duration: Gradual Quality of pain: Achy Pain Level: 5 Context: Patient presents with a broken tooth and dental pain. Patient denies any fever or facial swelling. Patient is currently 31 weeks and denies any complications with the . Associated Symptoms: Other - Dental pain. denies: Fever Exacerbated by: Denies Relieved by: Denies Similar symptoms previously: Yes Recently seen / treated by doctor: No - ROS ROS below otherwise negative: Yes Systems Reviewed and Negative: Yes All other systems reviewed and negative - CONSTITUTIONAL Constitutional: DENIES: Fever, Chills - GASTROINTESTINAL Gastrointestinal: DENIES: Nausea, Patient vomiting - REPRODUCTIVE LMP: 03/10/18 Reproductive: REPORTS: : - MUSCULOSKELETAL Musculoskeletal: DENIES: Back Pain - DERM Skin Color: Normal Skin Problems: None Past Medical History - General Information source: Patient - Social History Smoking Status: Never Smoker Frequency of alcohol use: None Drug Abuse: None Occupation: none Family History: Reviewed & Not Pertinent, CAD, Hyperlipidemia, Hypertension - Medical History Medical History: Negative Renal/ Medical History: Denies: Hx Peritoneal Dialysis Surgical Hx: Negative - Immunizations Hx Diphtheria, Pertussis, Tetanus Vaccination: Yes Vertical Provider Document - CONSTITUTIONAL Agree With Documented VS: Yes Exam Limitations: No Limitations General Appearance: WD/WN, No Apparent Distress - INFECTION CONTROL TRAVEL OUTSIDE OF THE [place] IN LAST 30 DAYS: No - HEENT HEENT: Atraumatic, Normocephalic. negative: Pharyngeal Exudate, Pharyngeal Tenderness, Tympanic Membrane Red, Tympanic Membrane Bulging Mouth Diagram: 1 - Dental fracture, tenderness, no gingival abscess, no trismus, no sublingual or submental swelling - NECK Neck: Normal Inspection, Supple - RESPIRATORY Respiratory: Breath Sounds Normal, No Respiratory Distress - CARDIOVASCULAR Cardiovascular: Regular Rate, Regular Rhythm - BACK Back: Normal Inspection - MUSCULOSKELETAL/EXTREMETIES Musculoskeletal/Extremeties: MAEW - NEURO Level of Consciousness: Awake, Alert, Appropriate Motor/Sensory: No Motor Deficit - DERM Integumentary: Warm, No Rash Course - Vital Signs Vital signs: Temp Pulse Resp BP Pulse Ox 99.1 F 49 L 20 111/66 99 10/17/18 11:50 10/17/18 11:50 10/17/18 11:50 10/17/18 11:50 10/17/18 11:50 Discharge - Discharge Clinical Impression: Toothache Condition: Stable Disposition: HOME, SELF-CARE Instructions: Acetaminophen, Penicillin V K ([facility]), Toothache ([facility]) Additional Instructions: Return immediately for any new or worsening symptoms Followup with your dental care provider, call tomorrow to make a followup appointment Prescriptions: Penicillin V Potassium [Penicillin Vk 500 mg Tablet] 500 mg PO BID #20 tablet Referrals: [facility] [Provider Group] - Follow up as needed
== END 2018-10-17 13:03 | disposition home or self-care (01) ==
LOC: ER 11:37
DX: O99.613 Diseases of the digestive system complicating pregnancy, third trimester (principal); K08.89 Other specified disorders of teeth and supporting structures; Z3A.31 31 weeks gestation of pregnancy
CPT/HCPCS: 99282; J3490 ×2

== ENCOUNTER 2018-12-06 13:59 | Outpatient (CLI) | payer MEDICAID ==
--- NOTE | 2018-12-06 14:46 | Non Stress Test Report ---
Non Stress Test Datetime Report Generated by CPN: 12/06/2018 14:46 DEMOGRAPHIC EGA NST: 38.5 INDICATION Indication for Study: Decreased Movement MONITORING Monitor Explained: Monitor Explained; Test Explained; Patient Verbalized Understanding Time on Monitor: 12/06/2018 14:09 NST INTERVENTIONS NST Interventions: PO Hydration Physician Notified NST: J. Bernabe, CNM BABY A: [id number] BABY A Movement : Present Movement : Present Contraction Frequency : 0 FHR Baseline : 135 Accelerations : 15X15 Decelerations : None Variability : Moderate 6-25bpm NST Review: Meets Criteria for Reactive NST NST Review: Meets Criteria for Reactive NST NST Review and Verified By : EMILY MOCTEZUMA Results: Reactive NST Results: Reactive NST REPORT Report Trigger: Send Report
== END 2018-12-06 14:47 | disposition home or self-care (01) ==
LOC: LC 13:59
PROVIDERS: ATTEND Obstetrics & Gynecology
PROC: 4A1HXCZ Monitoring of Products of Conception, Cardiac Rate, External Approach (ICD-10-PCS; principal; 2018-12-06)
DX: O36.8130 Decreased fetal movements, third trimester, not applicable or unspecified (principal); O47.1 False labor at or after 37 completed weeks of gestation; Z3A.38 38 weeks gestation of pregnancy
CPT/HCPCS: 59025

== ENCOUNTER 2018-12-08 16:21 | Inpatient (IN) | payer MEDICAID ==
[2018-12-08] MEDS ORDERED: OXYTOCIN/NORMAL SALINE 20 UNIT/1,000 ML RTUINJ ONE (19:06)
[2018-12-08] MEDS ORDERED: LIDOCAINE 1% INJ-PF (10 MG/ML) 30 ML SDV ONE (19:06)
[2018-12-08] MEDS ORDERED: OXYTOCIN 10 UNIT/ML VIAL ONE (19:06)
[2018-12-08] MEDS ORDERED: MISOPROSTOL 0.2 MG TABLET ONE ×2 (19:06)
[2018-12-08] MEDS ORDERED: PENICILLIN G-K 5 MILLION UNIT VIAL ONE ×2 (19:17→22:56)
[2018-12-08 19:28] LABS: APPEARANCE,URINE SLIGHTLY-CLOUDY; BILIRUBIN,URINE NEGATIVE (NEGATIVE); COLOR,URINE YELLOW; GLUCOSE, URINE NEGATIVE (NEGATIVE); KETONES,URINE NEGATIVE (NEGATIVE); LEUKOCYTE ESTERASE,URINE SMALL (NEGATIVE); NITRITE,URINE NEGATIVE (NEGATIVE); PROTEIN,URINE NEGATIVE (NEGATIVE); URINE SPECIFIC GRAVITY 1.014
[2018-12-08 19:35] LABS: ABSOLUTE LYMPHOCYTES (AUTO) 1.9 10^3/uL (0.5-4.7); ABSOLUTE MONOCYTES (AUTO) 1.1 10^3/uL (0.1-1.4); ABSOLUTE NEUT (AUTO) 9.7 10^3/uL (1.7-8.2); BASOPHILS % (AUTO) 0.2 % (0-2); EOSINOPHILS % (AUTO) 0.3 % (0-6); HEMATOCRIT 34.4 % (36.0-47.0); HEMOGLOBIN 11.7 g/dL (12.0-15.5); LYMPHOCYTES % (AUTO) 15.2 % (13-45); MEAN CORPUSCULAR HEMOGLOBIN 30.7 pg (27.0-33.4); MEAN CORPUSCULAR VOLUME 91 fl (80-97); MONOCYTES % (AUTO) 8.4 % (3-13); PLATELET COUNT 207 10^3/uL (150-450); RED CELL DISTRIBUTION WIDTH 14.2 % (11.5-14.0); SEGMENTED NEUTROPHILS % (AUTO) 75.9 % (42-78); TOTAL CELLS COUNTED % (AUTO) 100 %; WHITE BLOOD COUNT 12.8 10^3/uL (4.0-10.5)
[2018-12-08 19:45] LABS: URINE AMPHETAMINES SCREEN NEGATIVE; URINE BARBITURATES SCREEN NEGATIVE; URINE BENZODIAZEPINES SCREEN NEGATIVE; URINE COCAINE SCREEN NEGATIVE; URINE MARIJUANA (THC) SCREEN NEGATIVE; URINE METHADONE SCREEN NEGATIVE; URINE PHENCYCLIDINE SCREEN NEGATIVE
[2018-12-08] MEDS ORDERED: FENTANYL/BUPIVACAINE/NS/PF 300 MCG/150 ML RTUINJ EPI ONE (20:06)
[2018-12-08] MEDS ORDERED: EPHEDRINE SULFATE INJ 50 MG/1 ML AMPULE ONE (20:06)
[2018-12-08] MEDS ORDERED: BUPIVACAINE HCL 0.25 % INJ/PF (2.5 MG/1 ML) 30 ML VIAL ONE (20:07)
[2018-12-08] MEDS ORDERED: OXYTOCIN/NORMAL SALINE 20 UNIT/1,000 ML RTUINJ IV PRN (22:30)
--- NOTE | 2018-12-09 01:46 | Admission Physical ---
Datetime Report Generated by CPN: 12/09/2018 01:45 CURRENT ADMISSION Chief Complaint: Uterine Contractions Indication for Induction: Not Applicable Admit Impression : Term, Intrauterine Admit Plan: Initiate Labor Protocol ALLERGIES Medication Allergies: No Medication Allergies: No Known Allergies (12/08/2018) Latex: No Latex Allergies Food Allergies: No known allergies Environmental Allergies: No known allergies OBSTETRICAL HISTORY EDC: 12/15/2018 00:00 : 3 Para: 2 Term: 2 : 0 SAB: 0 IAB: 0 Livin Gestational Diabetes: No Rh Sensitization: No Incompetent Cervix: No NIURKA: No Infertility: No ART Treatment: No Uterine Anomaly: No IUGR: No Hx Previous C/S: No Macrosomia: No Hx Loss/Stillborn: No PIH: No Hx : No Placenta Previa/Abruption: No Depression/PP Depression: No PTL/PROM: No Post Hemorrhage: No Current Procedures: Ultrasound; NST Obstetrical History Comments: G1 - 2005 40 weeks boy 5lb 7 oz, IV pain medication G2 - 2010 40 weeks boy 6lb 8 oz, IV pain medication G3 - Current SEE RECORDS Alcohol: No Marijuana : No Cocaine: No Other Illicit Drugs: No Cigarettes: Never Smoker. 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 Heart Disease: No Hosp/Surgery: Yes Autoimmune Disorder: No Anesthetic Complications: No Kidney Disease: No Abnormal Pap Smear: No Neuro/Epilepsy: No Psychiatric Disorders: No Other Medical Diseases: No Hepatitis/Liver Disease: No Significant Family History: No Varicosities/Phlebitis: No Trauma/Violence : No Thyroid Dysfunction: No Medical History Comments: Previous hospitalizations r/t pregnancies INFECTIOUS HISTORY Gonorrhea: No Genital Herpes: No Chlamydia: No Tuberculosis: No Syphilis: No Hepatitis: No HIV/AIDS Exposure: No Rash or Viral Illness: No HPV: No PHYSICAL EXAM General: Normal HEENT: Normal Neurologic: Normal Thyroid: Normal Heart: Normal Lungs: Normal Breast: Deferred Back: Normal Abdomen: Normal Genitourinary Exam: Normal Extremities: Normal DTRs: Normal Pelvic Type: Adequate FETUS A EGA: 39.1 Monitoring: External US PLANS FOR LABOR AND DELIVERY Labor and Delivery: None Pain Management: Medications Feeding Preference: Breast Benefit of Breast Feed Discussed: Yes Circumcision: Yes INFORMED CONSENT Signature: with User ID: [email or web address]
[2018-12-09] MEDS ORDERED: PSEUDOEPHEDRINE HCL 30 MG TABLET PO PRN (02:28)
[2018-12-09] MEDS ORDERED: GLYCERIN/WITCH HAZEL LEAF 1 EACH MED..PAD TP PRN (02:28)
[2018-12-09] MEDS ORDERED: MAGNESIUM HYDROXIDE SUSP 30 ML UDCUP PO PRN (02:28)
[2018-12-09] MEDS ORDERED: DIPH/PERTUSS(ACELL)/TETANUS VAC/PF 0.5 ML SYR (>=10YO) IM PRN (02:28)
[2018-12-09] MEDS ORDERED: NA PHOS,M-B/NA PHOS,DI-BA (ADULT) 133 ML ENEMA PR PRN (02:28)
[2018-12-09] MEDS ORDERED: OXYTOCIN/NORMAL SALINE 20 UNIT/1,000 ML RTUINJ IV PRN (02:28)
[2018-12-09] MEDS ORDERED: PROMETHAZINE HCL INJ 25 MG/1 ML VIAL IV PRN (02:28)
[2018-12-09] MEDS ORDERED: PROMETHAZINE HCL 25 MG TABLET PO PRN (02:28)
[2018-12-09] MEDS ORDERED: PROMETHAZINE HCL 25 MG SUPP.RECT PR PRN (02:28)
[2018-12-09] MEDS ORDERED: MEASLES,MUMPS&RUBELLA VACC/PF 0.5 ML VIAL SUBCUT PRN (02:28)
[2018-12-09] MEDS ORDERED: ZOLPIDEM TARTRATE 5 MG TABLET PO PRN (02:28)
[2018-12-09] MEDS ORDERED: DIPHENHYDRAMINE HCL 25 MG CAPSULE PO PRN (02:28)
[2018-12-09] MEDS ORDERED: ACETAMINOPHEN 650 MG SUPP.RECT PR PRN (02:28)
[2018-12-09] MEDS ORDERED: DIBUCAINE 1% OINTMENT 56 GM TP PRN (02:28)
[2018-12-09] MEDS ORDERED: BENZOCAINE/MENTHOL AEROSOL SPRAY 56 ML TOP PRN (02:28)
--- NOTE | 2018-12-09 03:31 | Warning Signs in Babies ---
VOD Warning Signs Datetime Report Generated by [facility]: 12/09/2018 03:31 VOD#[id number] -Warning Signs in Babies: Needs to be viewed. (10/05/2018 18:01:Diana Ward RN)
--- NOTE | 2018-12-09 03:31 | Delivery Summary ---
Del Sum A-C Datetime Report Generated by CPN: 12/09/2018 03:31 DELIVERY PERSONNEL DELIVERY PERSONNEL: [id number] Delivery Doctor:: Bubba Ovalles MD Labor and Delivery Nurse:: Diana Ward RN Nursery Nurse:: Andressa Plascencia RN Nursery Nurse:: Alaina Zhang RN [employer] SALES REPRESENTATIVE: Olimpia Brower, ST MATERNAL INFORMATION Delivery Anesthesia: Epidural Medications After Delivery: Pitocin Drip 20 Units/1000ml NSS Maternal Complications: None Provider Comments: thick meconium LABOR SUMMARY EDC: 12/15/2018 00:00 No. Babies in Womb: 1 Attempted: No Labor Anesthesia: Epidural LABOR INFORMATION Reason for Induction: Not Applicable Onset of Labor: 12/09/2018 19:42 Complete Dilatation: 12/09/2018 01:38 Oxytocin: Augmentation Group B Beta Strep: Positive Antibiotics # of Doses: 2 Antibiotics Time of Last Dose: 1121 Name of Antibiotic Given: Penicillin Steroids Given: None Reason Steroids Not Administered: Not Applicable MEMBRANES Membranes Rupture Method: Spontaneous Rupture of Membranes: 12/08/2018 18:47 Length of Rupture (hr): 7.53 Amniotic Fluid Color: Light Meconium Amniotic Fluid Amount: Moderate Amniotic Fluid Odor: Foul STAGES OF LABOR Stage 1 hr: -18 Stage 1 min: -4 Stage 2 hr: 0 Stage 2 min: 41 Stage 3 hr: 0 Stage 3 min: 2 Total Time in Labor hr: -17 Total Time in Labor min: -21 VAGINAL DELIVERY Episiotomy: None Laceration #1: None Laceration Extension #1: N/A Laceration Repair: Not Applicable Initial Vag Sponge Count: 0 Final Vag Sponge Count: 0 Initial Vag Sharps Count: 0 Final Vag Sharps Count: 0 Sponge Count Correct: N/A CSECTION DELIVERY Primary Indication: N/A Secondary Indication: N/A CSection Urgency: Emergency CSection Incidence: N/A Labor: N/A Elective: N/A CSection Incision: Lower Uterine Transverse BABY A INFORMATION Delivery Date/Time: 12/09/2018 02:19 Method of Delivery: Vaginal Born in Route : No : N/A Forceps: N/A Vacuum Extraction: N/A Shoulder Dystocia : No PRESENTATION/POSITION BABY A Presentation: Cephalic Cephalic Presentation: Vertex Vertex Position: Right Occipital Anterior Breech Presentation: N/A PLACENTA INFORMATION BABY A Placenta Delivery Time : 12/09/2018 02:21 Placenta Method of Delivery: Spontaneous Placenta Status: Delivered SCORES BABY A Heart Rate 1 min: >100 bpm Resp Effort 1 min: Slow, Irregular Reflex Irritability 1 min: Grimace Muscle Tone 1 min: Some Flexion of Extremities Color 1 min: Blue/Pale Resuscitation Effort 1 min: Tactile Stimulation; PPV/NCPAP SCORE 1 MIN: 5 Heart Rate 5 min: >100 bpm Resp Effort 5 min: Good Cry Reflex Irritability 5 min: Cough or Sneeze or Pulls Away Muscle Tone 5 min: Some Flexion of Extremities Color 5 min: Body Sartell, Extremities Blue SCORE 5 MIN: 8 INFORMATION BABY A Gestational Age at Delivery: 39.1 Gestational Status: Full Term- 39- 40.6 Weeks Outcome : Liveborn Condition : Stable Sex: Male IDENTIFICATION BABY A Infant Verification Date/Time: 12/09/2018 02:51 ID Band Number: [id number] Mother's Name Verified: Yes Infant RN Verifying Infant: A. Ed, RN Additional Verifying Personnel: Micheal Brower, ST WEIGHT/LENGTH BABY A Birthweight (gm): 3380 Infant Weight (lb): 7 Weight (oz): 7 Length (in): 20.00 Length (cm): 50.80 CORD INFORMATION BABY A No. Cord Vessels: 3 Nuchal Cord : N/A Cord Blood Taken: Yes-For Storage (Mom's Blood type +) Suction: Mouth; Nose ASSESSMENT BABY A Infant Complications: Meconium Physical Findings at Delivery: Within Normal Limits Skin to Skin: No Skin to Skin Time (min): 0 Transferred To: Remains with Mother BABY B INFORMATION : N/A SIGNATURES Signature: with User ID: [email or web address]
[2018-12-09] MEDS: IBUPROFEN 800 MG TABLET PO SCH ×3 (06:01→21:47)
[2018-12-09] MEDS: ACETAMINOPHEN WITH CODEINE #3 TABLET PO PRN (08:05)
[2018-12-09] MEDS: SENNOSIDES/DOCUSATE 8.6-50 MG 1 EACH TABLET PO SCH (10:37)
[2018-12-09] MEDS: FAMOTIDINE 20 MG TABLET PO SCH ×2 (10:37→21:47)
[2018-12-09] MEDS: FERROUS SULFATE 325 MG TABLET PO SCH ×2 (10:37→17:39)
[2018-12-09] MEDS: PRENATAL VITAMIN W DHA CAPSULE PO SCH (10:37)
[2018-12-09] MEDS: DOCUSATE SODIUM 100 MG CAPSULE PO SCH ×2 (10:37→17:38)
--- NOTE | 2018-12-09 15:20 | PDOC PROGRESS REPORT ---
Subjective-OB Progress Note for:: 12/09/18 Subjective: Pt doing well, no concerns. She reports light bleeding, reg diet and voiding without difficulty. Physical Exam (OB) Vital Signs: Temp Pulse Resp BP Pulse Ox 98.4 F 68 15 106/66 97 12/09/18 07:38 12/09/18 07:38 12/09/18 07:38 12/09/18 07:38 12/09/18 07:38 Intake & Output 12/08/18 12/09/18 12/10/18 06:59 06:59 06:59 Weight 73.936 kg - Lochia Lochia Amount: Scant < 10 ml Lochia Color: Rubra/Red - Abdomen Description: Tender Hernia Present: No Fundal Description: Firm, Midline Fundal Height: u/u - u/2 Objective-Diagnostic Laboratory: 12/08/18 19:20 12/08/18 12/08/18 12/08/18 16:35 19:20 19:20 WBC 12.8 H RBC 3.80 Hgb 11.7 L Hct 34.4 L MCV 91 MCH 30.7 MCHC 34.0 RDW 14.2 H Plt Count 207 Seg Neutrophils % 75.9 Lymphocytes % 15.2 Monocytes % 8.4 Eosinophils % 0.3 Basophils % 0.2 Absolute Neutrophils 9.7 H Absolute Lymphocytes 1.9 Absolute Monocytes 1.1 Absolute Eosinophils 0.0 Absolute Basophils 0.0 Urine Color YELLOW Urine Appearance SLIGHTLY-CLOUDY Urine pH 6.0 Ur Specific [place] 1.014 Urine Protein NEGATIVE Urine Glucose (UA) NEGATIVE Urine Ketones NEGATIVE Urine Blood SMALL H Urine Nitrite NEGATIVE Ur Leukocyte Esterase SMALL H Blood Type B POSITIVE Antibody Screen NEGATIVE Assessment and Plan(PN) - Assessment and Plan (1) Vaginal delivery Is this a current diagnosis for this admission?: Yes - Time Spent with Patient Time with patient: Less than 15 minutes Medications reviewed and adjusted accordingly: Yes - Disposition Anticipated Discharge: Home Within: within 24 hours
[2018-12-10] MEDS: ACETAMINOPHEN WITH CODEINE #3 TABLET PO PRN (01:58)
[2018-12-10 08:45] LABS: HEMATOCRIT 31.8 % (36.0-47.0); HEMOGLOBIN 10.8 g/dL (12.0-15.5); MEAN CORPUSCULAR HEMOGLOBIN 30.7 pg (27.0-33.4); MEAN CORPUSCULAR VOLUME 90 fl (80-97); PLATELET COUNT 199 10^3/uL (150-450); RED BLOOD COUNT 3.51 10^6/uL (3.72-5.28); RED CELL DISTRIBUTION WIDTH 14.7 % (11.5-14.0); WHITE BLOOD COUNT 10.5 10^3/uL (4.0-10.5)
--- NOTE | 2018-12-10 09:07 | PDOC DISCHARGE SUMMARY ---
Addendum entered and electronically signed by JORGE CHING CNM 12/10/18 11:18: Final Diagnosis Discharge Date: 12/11/18 - Final Diagnosis (1) Vaginal delivery Is this a current diagnosis for this admission?: Yes Original Note: Final Diagnosis Discharge Date: 12/10/18 - Final Diagnosis (1) Vaginal delivery Is this a current diagnosis for this admission?: Yes Discharge Data - Discharge Medication Prescriptions: Ibuprofen [Motrin 800 mg Tablet] 800 mg PO Q8 #60 tablet Home Medications: Vits96/Iron Fum/Folic [ Tablet] 1 each PO DAILY 10/05/18 Ibuprofen [Motrin 800 mg Tablet] 800 mg PO Q8 #60 tablet 12/10/18 Reason(s) for Admission: Onset of Labor Procedures: NST Intrapartum Procedure(s): Spontaneous Vaginal Delivery - Diagnosis Test Laboratory: Temp Pulse Resp BP Pulse Ox 98.5 F 68 16 110/60 97 12/09/18 20:29 12/09/18 20:29 12/09/18 20:29 12/09/18 20:29 12/09/18 20:29 12/08/18 12/08/18 12/10/18 16:35 19:20 08:05 RBC 3.80 3.51 L Hgb 11.7 L 10.8 L Hct 34.4 L 31.8 L Urine Opiates Screen NEGATIVE - Discharge information/Instructions Discharge Activity: Balance Activity w/Rest, Pelvic Rest Discharge Diet: Regular Disposition: HOME, SELF-CARE Follow up with: [facility] in: 4, Weeks
[2018-12-10] MEDS: IBUPROFEN 800 MG TABLET PO SCH ×3 (10:48→21:49)
[2018-12-10] MEDS: PRENATAL VITAMIN W DHA CAPSULE PO SCH (10:49)
[2018-12-10] MEDS: FAMOTIDINE 20 MG TABLET PO SCH ×2 (10:50→21:50)
[2018-12-10] MEDS: DOCUSATE SODIUM 100 MG CAPSULE PO SCH ×2 (10:50→18:12)
[2018-12-10] MEDS: SENNOSIDES/DOCUSATE 8.6-50 MG 1 EACH TABLET PO SCH (10:51)
[2018-12-10] MEDS: FERROUS SULFATE 325 MG TABLET PO SCH ×2 (10:51→18:12)
--- NOTE | 2018-12-10 11:19 | PDOC PROGRESS REPORT ---
Subjective-OB Progress Note for:: 12/10/18 Subjective: Pt doing well, no concerns. Reports light bleeding, reg diet and voiding without difficulty. Physical Exam (OB) Vital Signs: Temp Pulse Resp BP Pulse Ox 97.7 F 54 L 16 111/66 98 12/10/18 07:39 12/10/18 07:39 12/10/18 07:39 12/10/18 07:39 12/10/18 07:39 Intake & Output 12/09/18 12/10/18 12/11/18 06:59 06:59 06:59 Weight 73.936 kg - Lochia Lochia Amount: Scant < 10 ml Lochia Color: Rubra/Red - Abdomen Description: Tender, Soft Hernia Present: No Fundal Description: Firm, Midline Fundal Height: u/u - u/2 Objective-Diagnostic Laboratory: 12/10/18 08:05 12/10/18 08:05 WBC 10.5 RBC 3.51 L Hgb 10.8 L Hct 31.8 L MCV 90 MCH 30.7 MCHC 34.0 RDW 14.7 H Plt Count 199 Assessment and Plan(PN) - Assessment and Plan (1) Vaginal delivery Is this a current diagnosis for this admission?: Yes - Time Spent with Patient Time with patient: Less than 15 minutes Medications reviewed and adjusted accordingly: Yes - Disposition Anticipated Discharge: Home Within: within 24 hours
[2018-12-11] MEDS: IBUPROFEN 800 MG TABLET PO SCH (05:22)
[2018-12-11 08:58] VITALS: BP 109/63
[2018-12-11] MEDS: FERROUS SULFATE 325 MG TABLET PO SCH (09:29)
[2018-12-11] MEDS: SENNOSIDES/DOCUSATE 8.6-50 MG 1 EACH TABLET PO SCH (09:29)
[2018-12-11] MEDS: PRENATAL VITAMIN W DHA CAPSULE PO SCH (09:29)
[2018-12-11] MEDS: DOCUSATE SODIUM 100 MG CAPSULE PO SCH (09:29)
[2018-12-11] MEDS: FAMOTIDINE 20 MG TABLET PO SCH (12:33)
== END 2018-12-11 13:58 | disposition home or self-care (01) | DRG 807 ==
LOC: LC 16:21 → LR 18:56 → 2S 12-09 04:17
PROVIDERS: ADMIT Obstetrics & Gynecology Gynecology; ATTEND Obstetrics & Gynecology Gynecology
PROC: 10E0XZZ Delivery of Products of Conception, External Approach (ICD-10-PCS; principal; 2018-12-09)
DX: O77.0 Labor and delivery complicated by meconium in amniotic fluid (principal); Z37.0 Single live birth; O99.824 Streptococcus B carrier state complicating childbirth; Z3A.39 39 weeks gestation of pregnancy
CPT/HCPCS: 36415; 80307; 81005; 85025; 85027; 86592; 86850; 86900; 86901; 88307; 94760; 99465; J2540; J2590; J3010; J3490

== ENCOUNTER 2019-07-11 19:46 | Emergency (ER) | payer MEDICAID ==
--- NOTE | 2019-07-11 20:47 | ER Document Report ---
ED Flu Like - General Chief Complaint: Flu Symptoms Stated Complaint: COUGH/BODYACHES Time Seen by Provider: 07/11/19 20:22 Primary Care Provider: HEBERT PARKS MD [ACTIVE STAFF] - Follow up as needed Mode of Arrival: Ambulatory Information source: Patient Notes: 33-year-old female presented to ED for complaint of cough cold congestion body aches hot and cold flashes starting this morning. She denies any fever. She states she has had a cough all day. She also has postnasal drip. She has cobblestoning to the oropharynx. She has a swollen nasopharynx with purulent drainage. Flu and urine had already been ordered and I did order a strep. These have all been collected and I will wait for results. TRAVEL OUTSIDE OF THE [place] IN LAST 30 DAYS: No - HPI Onset: This morning Timing/Duration: Intermittent Quality of pain: Sharp - Sharp pain to the lungs when she coughs sore throat body aches Severity: Moderate Pain Level: 2 Associated symptoms: Body/muscle aches, Chills, Nonproductive cough, Rhinnorhea, Sinus pain/drainage, Sore throat Similar symptoms previously: Yes Recently seen / treated by doctor: No - Related Data Allergies/Adverse Reactions: No Known Allergies Allergy (Verified 12/08/18 19:50) Past Medical History - General Information source: Patient - Social History Smoking Status: Never Smoker Chew tobacco use (# tins/day): No Frequency of alcohol use: None Drug Abuse: None Lives with: Family Family History: Reviewed & Not Pertinent, CAD, Hyperlipidemia, Hypertension Patient has suicidal ideation: No Patient has homicidal ideation: No - Past Medical History Cardiac Medical History: Reports: None Pulmonary Medical History: Reports: None EENT Medical History: Reports: None Neurological Medical History: Reports: None Endocrine Medical History: Reports: None Renal/ Medical History: Reports: None Malignancy Medical History: Reports: None GI Medical History: Reports: None Musculoskeletal Medical History: Reports None Skin Medical History: Reports None Psychiatric Medical History: Reports: None Traumatic Medical History: Reports: None Infectious Medical History: Reports: None Surgical Hx: Negative Past Surgical History: Reports: None - Immunizations Hx Diphtheria, Pertussis, Tetanus Vaccination: Yes Review of Systems - Review of Systems Constitutional: Chills, Recent illness EENT: Nose discharge, Sinus discharge, Throat pain Respiratory: Cough, Other - Chest pain with cough Gastrointestinal: No symptoms reported Genitourinary: No symptoms reported Female Genitourinary: No symptoms reported Musculoskeletal: No symptoms reported Skin: No symptoms reported Hematologic/Lymphatic: No symptoms reported Neurological/Psychological: No symptoms reported -: Yes All other systems reviewed and negative Physical Exam - Vital signs Vitals: Temp Pulse Resp BP Pulse Ox 99.1 F 88 20 131/69 H 98 07/11/19 19:51 07/11/19 19:51 07/11/19 19:51 07/11/19 19:51 07/11/19 19:51 Interpretation: Normal - General General appearance: Appears well, Alert - HEENT Head: Normocephalic, Atraumatic Eyes: Normal Pupils: PERRL Ears: Normal External canal: Normal Tympanic membrane: Normal Sinus: Normal Nasal: Purulent discharge, Swelling Mouth/Lips: Normal Pharynx: Erythema, Other - Cobblestoning Neck: Normal - Respiratory Respiratory status: No respiratory distress Chest status: Pain with cough Breath sounds: Normal, Nonproductive cough Chest palpation: Normal - Cardiovascular Rhythm: Regular Heart sounds: Normal auscultation Murmur: No - Abdominal Inspection: Normal Distension: No distension Bowel sounds: Normal Tenderness: Nontender Organomegaly: No organomegaly - Back Back: Normal, Nontender - Extremities General upper extremity: Normal inspection, Nontender, Normal color, Normal ROM, Normal temperature General lower extremity: Normal inspection, Nontender, Normal color, Normal ROM, Normal temperature, Normal weight bearing. No: Annia's sign - Neurological Neuro grossly intact: Yes Cognition: Normal Orientation: AAOx4 Pati Coma Scale Eye Opening: Spontaneous Pati Coma Scale Verbal: Oriented Pati Coma Scale Motor: Obeys Commands Pati Coma Scale Total: 15 Speech: Normal Motor strength normal: LUE, RUE, LLE, RLE Sensory: Normal - Psychological Associated symptoms: Normal affect, Normal mood - Skin Skin Temperature: Warm Skin Moisture: Dry Skin Color: Normal Course - Re-evaluation Re-evalutation: 07/11/19 22:57 After performing a Medical Screening Examination, I estimate there is LOW risk for ACUTE CORONARY SYNDROME, RESPIRATORY FAILURE, SEPSIS OR MENINGITIS, thus I consider the discharge disposition reasonable. I have reevaluated this patient multiple times and no significant life threatening changes are noted. The patient and I have discussed the diagnosis and risks, and we agree with discharging home with close follow-up. We also discussed returning to the Emergency Department immediately if new or worsening symptoms occur. We have discussed the symptoms which are most concerning (e.g., changing or worsening pain, trouble swallowing or breathing, neck stiffness, fever) that necessitate immediate return. - Vital Signs Vital signs: Temp Pulse Resp BP Pulse Ox 98.2 F 94 16 108/70 99 07/11/19 21:50 07/11/19 21:50 07/11/19 21:50 07/11/19 21:50 07/11/19 21:50 - Laboratory Laboratory results interpreted by me: 07/11/19 20:35 Urine Urobilinogen 4.0 H Ur Leukocyte Esterase TRACE H Discharge - Discharge Clinical Impression: Viral sore throat URI (upper respiratory infection) Qualifiers: URI type: unspecified viral URI Qualified Code(s): J06.9 - Acute upper respiratory infection, unspecified Condition: Stable Disposition: HOME, SELF-CARE Instructions: Family Physicians / Practices Additional Instructions: SORE THROAT: Sore throats may be caused by viruses, bacteria, or fungi. Most are due to a virus, and must get better on their own. Bacterial sore throats, particularly those due to "strep," need treatment with antibiotics. If an antibiotic is prescribed, be sure to take the medication for a full 10 days. Failure to take the antibiotic can result in complications such as rheumatic fever. Sometimes, an injection of antibiotics is given instead of pills or liquid. This single "shot" is equal in effectiveness to the oral medication. To relieve symptoms, take acetaminophen for pain. Sip clear liquids frequently, or eat popsicles or ice chips. Anesthetic sprays or lozenges may help. Make sure the air in the room is not too dry. Avoid using decongestants or antihistamines. Call the doctor if there is no improvement in two days, or if you have difficulty breathing, increasing throat pain, high fever, rash, or frequent vomiting. UPPER RESPIRATORY ILLNESS: You have a viral infection of the respiratory passages -- a "cold." This common infection causes nasal congestion, drainage, and often sore throat and cough. It is highly contagious. The disease usually lasts about 10 to 14 days. There is no "cure" for the viral infection -- it must run its course. If there is a complication, such as bacterial infection in the nose, sinuses, middle ear, or bronchial tubes, antibiotics may be required. The antibiotics won't affect the virus. Drink plenty of fluids. A humidifier may help. An expectorant medication or decongestant may make you more comfortable. Use acetaminophen or ibuprofen for fever or aches. See the doctor if fever persists over two days, if there is any significant worsening of your symptoms, or if you simply fail to improve as expected. DECONGESTANT MEDICATION: A decongestant medicine has been suggersted. Often this medicine is combined in the same tablet with an antihistamine or expectorant. This type of medicine is helpful in treating a bad cold or sinus condition, as well as in treatment of the nasal congestion of hay fever. It is not of much benefit for lung infections. Decongestant medicines are related to stimulants. They can cause an increase in blood pressure and heart rate. Persons with heart disease and high blood pressure should not take decongestants without discussing this with the physician. If you develop palpitations, chest pain, headache, or tremors, stop the medicine and consult your physician. COUGH-SUPPRESSANT & EXPECTORANT MEDICATION: You are to use a cough medication as needed for relief of symptoms. This medicine is a combination of an expectorant (to make the mucous thinner and more easily "coughed up") and a cough suppressant (to reduce the frequency of coughing). The cough-suppressant medicine is related to narcotics. You may experience mild nausea and sleepiness. Some patients who are very sensitive to narcotics may have stomach pain from this medicine. Taking the medicine with food reduces these side effects. Do not drive or work with machinery until you know how this medicine affects you. The expectorant should have no side effects. Iodine-containing expectorants (such as organidin) should not be taken by persons with active thyroid disease unless approved by your doctor. Call the doctor if you develop shortness of breath, hives, rash, itching, lightheadedness, or severe nausea and vomiting. USE OF ACETAMINOPHEN (Tylenol): Acetaminophen may be taken for pain relief or fever control. It's much safer than aspirin, offering a wider range of "safe" dosages. It is safe during . Some brand names are Tylenol, Panadol, Datril, Anacin 3, Tempra, and Liquiprin. Acetaminophen can be repeated every four hours. The following are maximum recommended dosages: >89 pounds or adults 650 mg to 900 mg Acetaminophen can be repeated every four hours. Maximum dose not to exceed 4000 mg a day. FOLLOW-UP CARE: If you have been referred to a physician for follow-up care, call the physicians office for an appointment as you were instructed or within the next two days. If you experience worsening or a significant change in your symptoms, notify the physician immediately or return to the Emergency Department at any time for re-evaluation. Forms: Elevated Blood Pressure Referrals: HEBERT PARKS MD [ACTIVE STAFF] - Follow up as needed
[2019-07-11 21:11] LABS: APPEARANCE,URINE SLIGHTLY-CLOUDY; BILIRUBIN,URINE NEGATIVE (NEGATIVE); COLOR,URINE YELLOW; GLUCOSE, URINE NEGATIVE (NEGATIVE); KETONES,URINE NEGATIVE (NEGATIVE); LEUKOCYTE ESTERASE,URINE TRACE (NEGATIVE); NITRITE,URINE NEGATIVE (NEGATIVE); PROTEIN,URINE NEGATIVE (NEGATIVE); URINE SPECIFIC GRAVITY 1.018
[2019-07-11 21:12] LABS: A TYPE INFLUENZA AG NEGATIVE (NEGATIVE); B INFLUENZA AG NEGATIVE (NEGATIVE)
[2019-07-11 21:51] VITALS: BP 108/70
== END 2019-07-11 21:53 | disposition home or self-care (01) ==
LOC: ER 19:46
DX: J06.9 Acute upper respiratory infection, unspecified (principal); J02.9 Acute pharyngitis, unspecified; B97.89 Other viral agents as the cause of diseases classified elsewhere; R05 Cough; R09.81 Nasal congestion; M79.10 Myalgia, unspecified site; R09.82 Postnasal drip; J34.89 Other specified disorders of nose and nasal sinuses
CPT/HCPCS: 81001; 81025; 87070; 87804; 87880; 99283

== ENCOUNTER 2020-03-11 00:14 | Emergency (ER) | payer MEDICAID ==
[2020-03-11] MEDS ORDERED: IBUPROFEN 600 MG TABLET PO ONE (01:03)
--- NOTE | 2020-03-11 01:06 | ER Document Report ---
ED Medical Screen (RME) - General Chief Complaint: Ankle Pain Stated Complaint: ANKLE INJURY Time Seen by Provider: 03/11/20 01:01 Mode of Arrival: Wheelchair Information source: Patient Notes: Otherwise healthy 34-year-old female presenting to the emergency department chief complaint of left ankle pain. Patient reports she was playing with her child when she rolled her ankle. She states this occurred just a few hours prior to arrival. She has not had any medications. Mild swelling noted to the medial aspect of the left ankle, no obvious crepitus or deformity. Strong dorsalis pedis pulse. Cap refill less than 3 seconds distally, normal sensation distally. I have greeted and performed a rapid initial assessment of this patient. A comprehensive ED assessment and evaluation of the patient, analysis of test results and completion of the medical decision making process will be conducted by additional ED providers. I have specifically instructed the patient or family members with the patient to immediately return to any nursing staff should anything change in the patient's condition or with their chief complaint. TRAVEL OUTSIDE OF THE [place] IN LAST 30 DAYS: No - Related Data Allergies/Adverse Reactions: No Known Allergies Allergy (Verified 12/08/18 19:50) Past Medical History - Social History Chew tobacco use (# tins/day): No Frequency of alcohol use: None Drug Abuse: None Renal/ Medical History: Denies: Hx Peritoneal Dialysis - Immunizations Hx Diphtheria, Pertussis, Tetanus Vaccination: Yes Physical Exam - Vital signs Vitals: Temp Pulse Resp BP Pulse Ox 98.6 F 90 16 136/82 H 100 03/11/20 00:03/11/20 00:19 03/11/20 00:03/11/20 00:03/11/20 00:19 Course - Vital Signs Vital signs: Temp Pulse Resp BP Pulse Ox 98.6 F 90 16 136/82 H 100 03/11/20 00:03/11/20 00:03/11/20 00:03/11/20 00:03/11/20 00:19
--- NOTE | 2020-03-11 01:41 | RADIOLOGY REPORT (SQ) ---
CLINICAL INDICATION: twisted ankle, now pain. . TECHNIQUE: 3 view(s) were obtained of the left ankle. COMPARISON: None. FINDINGS: No acute displaced fracture is identified of the ankle. Alignment appears anatomic. Joint spaces are within normal limits for age. Soft tissue swelling mostly lateral. IMPRESSION: No evidence of acute displaced fracture of the ankle.
--- NOTE | 2020-03-11 03:01 | ER Document Report ---
ED Extremity Problem, Lower - General Chief Complaint: Ankle Pain Stated Complaint: ANKLE INJURY Time Seen by Provider: 03/11/20 01:01 Mode of Arrival: Wheelchair Notes: 34-year-old female presenting today with left ankle pain after an inversion injury around 10 PM tonight while playing with her kids. Patient states that she was unable to bear weight initially. States that she was given ibuprofen in triage which helped alleviate her pain. States that she has no numbness or tingling. Patient is able to wiggle her toes and has limited range of motion of her foot. She denies any additional symptoms at this time. TRAVEL OUTSIDE OF THE [place] IN LAST 30 DAYS: No - Related Data Allergies/Adverse Reactions: No Known Allergies Allergy (Verified 12/08/18 19:50) Past Medical History - General Information source: Patient - Social History Smoking Status: Never Smoker Chew tobacco use (# tins/day): No Frequency of alcohol use: None Drug Abuse: None Family History: Reviewed & Not Pertinent, CAD, Hyperlipidemia, Hypertension Renal/ Medical History: Denies: Hx Peritoneal Dialysis - Immunizations Hx Diphtheria, Pertussis, Tetanus Vaccination: Yes Review of Systems - Review of Systems Constitutional: No symptoms reported EENT: No symptoms reported Cardiovascular: No symptoms reported Respiratory: No symptoms reported Gastrointestinal: No symptoms reported Genitourinary: No symptoms reported Musculoskeletal: See HPI Physical Exam - Vital signs Vitals: Temp Pulse Resp BP Pulse Ox 98.6 F 90 16 136/82 H 100 03/11/20 00:19 03/11/20 00:19 03/11/20 00:19 03/11/20 00:19 03/11/20 00:19 Interpretation: Normal - Notes Notes: Adult General: GENERAL: Alert, interacts well. No acute distress HEAD: Normocephalic, atraumatic EYES: Extraocular movements intact. ENT: Airway patent. NECK: Full range of motion. Supple. Trachea midline. GENITOURINARY: Deferred EXTREMITIES: Left ankle swollen along anterior ankle. Ttp anterior to lateral mallelous. No 5th metatarsal tenderness. No navicular tenderness. Medial mallelous is non tender to palpation. Decreased ROM with flexion, extension, inversion and eversion. Good dorsalis pedis pulse. Good capillary refill. Sensation to light touch. Pain is not out of proportion to physical exam. No ecchymosis. No cyanosis. Moves all 4 extremities spontaneously. BACK: Moves all extremities with full range of motion. NEUROLOGICAL: Alert and oriented x3. Normal speech. PSYCH: Normal affect, normal mood. SKIN: Warm, dry, normal turgor. No rashes or lesions noted. Course - Re-evaluation Re-evalutation: 03/11/20 03:01 Patient with left ankle sprain. X-rays showed no signs of fracture. Discussed this with the patient. We will go ahead and order her an ankle brace and crutches as patient is very hesitant to bear weight. Discussed treatment to include pain relief with ibuprofen and Tylenol, rest, elevation and ice. Discussed return precautions to the emergency department to include worsening symptoms or development of new symptoms. Recommend patient follow-up with a primary care provider in regards to her ankle sprain. Patient acknowledges and verbalizes understanding of instructions and plan. All questions answered. - Vital Signs Vital signs: Temp Pulse Resp BP Pulse Ox 98.3 F 79 16 121/79 97 03/11/20 04:00 03/11/20 04:00 03/11/20 04:00 03/11/20 04:00 03/11/20 04:00 Discharge - Discharge Clinical Impression: Left ankle sprain Qualifiers: Encounter type: initial encounter Involved ligament of ankle: unspecified ligament Qualified Code(s): S93.402A - Sprain of unspecified ligament of left ankle, initial encounter Condition: Stable Disposition: HOME, SELF-CARE Instructions: Acetaminophen, Use of Crutches ([facility]), Ibuprofen (General) ([facility]), Ice Packs ([facility]), Splint Precautions ([facility]), Sprained Ankle ([facility]) Additional Instructions: Your x-ray showed no acute fracture. You are being treated for ankle sprain. Recommend ice, elevation, compression and rest. May use Tylenol and ibuprofen to help alleviate the pain. Please follow-up with your primary care provider soon as possible. Please return to the emergency department if you have worsening symptoms or the development of new symptoms.
[2020-03-11 04:02] VITALS: BP 121/79
== END 2020-03-11 04:02 | disposition home or self-care (01) ==
LOC: ER 00:14
DX: S93.402A Sprain of unspecified ligament of left ankle, initial encounter (principal); M79.89 Other specified soft tissue disorders; X50.1XXA Overexertion from prolonged static or awkward postures, initial encounter
CPT/HCPCS: 99283; 73610; J3490